=== PATIENT | female | born 1945 | race African-American/Black ===

== ENCOUNTER 2021-04-17 17:59 | Emergency (ER) | payer MEDICARE ==
[~2021-04-17 17:59] MED LIST: ALDACTONE25 MG PO; CLARITIN10 MG PO; COREG 6.25MG6.25 MG PO; COREG25 MG PO; FEOSOL325 MG PO; NORCO 5-325 TA1 EACH PO; NORVASC5 MG PO; PRINIVIL20 MG PO; VITAMIN B-121000 MC1 PO
[2021-04-17 20:37] LABS: BASOPHIL 1.3 % (0-2); HGB 11.2 g/dl (12.5-16.0); LYMPHOCYTE 29.7 % (15-48); MCHC 32.9 g/dL (32.0-36.0); MCV 91.2 fL (78.0-100.0); MONOCYTE 14.2 % (0-12); NEUTROPHIL 49.4 % (41-80); NRBC 0; PLT 245 K/uL (150-400); RBC 3.73 M/uL (4.20-5.40); RDW 15.9 % (11.5-14.0); WBC 7.5 K/uL (4.0-10.5)
[2021-04-17 21:01] LABS: BUN 35 mg/dL (7-18); CREATININE 6.65 mg/dL (0.51-0.95); GLUCOSE 98 mg/dL (74-106)
[2021-04-17 21:02] LABS: C-REACTIVE PROTEIN < 0.20 mg/dL (<=0.90); CHLORIDE 97 mmol/L (98-107); CO2 (BICARBONATE) 32 mmol/L (21-32); POTASSIUM 4.5 mmol/L (3.5-5.1)
[2021-04-18] MEDS ORDERED: NORCO 5-325 TA1 EACH PO (02:14)
== END 2021-04-18 02:29 | disposition home or self-care (01) ==
LOC: FER 17:59
PROVIDERS: Emergency Medicine Emergency Medical Services
DX: H40.9 Unspecified glaucoma (principal); I13.2 Hypertensive heart and chronic kidney disease with heart failure and with stage 5 chronic kidney disease, or end stage renal disease; N18.6 End stage renal disease; I50.9 Heart failure, unspecified; Z99.2 Dependence on renal dialysis; F17.200 Nicotine dependence, unspecified, uncomplicated
CPT/HCPCS: 36415; 70450; 80048; 85025; 86140; 93005; J1120; J2270; J2405

== ENCOUNTER 2021-10-26 12:21 | Emergency (ER) | payer MEDICARE, OTHER ==
[2021-10-26 13:35] LABS: INFLUENZA A NAA NEGATIVE (NEGATIVE)
[2021-10-26 13:41] LABS: CORONAVIRUS 2019 SARS-COV-2 POSITIVE (NEGATIVE)
== END 2021-10-26 15:05 | disposition home or self-care (01) ==
LOC: FER 12:21
PROVIDERS: Internal Medicine
DX: U07.1 COVID-19 (principal); I12.9 Hypertensive chronic kidney disease with stage 1 through stage 4 chronic kidney disease, or unspecified chronic kidney disease; N18.9 Chronic kidney disease, unspecified; F17.200 Nicotine dependence, unspecified, uncomplicated; Z99.2 Dependence on renal dialysis
CPT/HCPCS: 71045; U0002

== ENCOUNTER 2021-11-15 18:53 | Emergency (ER) | payer MEDICARE, OTHER ==
[2021-11-15 20:37] LABS: BASOPHIL 0.7 % (0-2); EOSINOPHIL 2.4 % (0-7); HCT 38.9 % (37.0-47.0); HGB 12.4 g/dl (12.5-16.0); LYMPHOCYTE 23.2 % (15-48); MCH 26.7 pg (25.0-31.0); MCHC 31.9 g/dL (32.0-36.0); MCV 83.7 fL (78.0-100.0); MONOCYTE 18.3 % (0-12); MPV 10.8 fL (6.0-9.5); NEUTROPHIL 55.1 % (41-80); NRBC 0; PLT 219 K/uL (150-400); RBC 4.65 M/uL (4.20-5.40); RDW 17.6 % (11.5-14.0); WBC 5.9 K/uL (4.0-10.5)
[2021-11-15 21:07] LABS: LACTIC ACID 1.1 mmol/L (0.4-1.9)
[2021-11-15 21:09] LABS: ALBUMIN 3.5 g/dL (3.4-5.0); BILIRUBIN - TOTAL 0.4 mg/dL (0.2-1.0); BUN/CREAT RATIO (CALC) 4.3 RATIO; CREATININE 4.44 mg/dL (0.51-0.95); GLOBULIN (CALCULATION) 4.5 g/dL; MAGNESIUM 2.6 mg/dL (1.8-2.4); PHOSPHORUS 5.5 mg/dL (2.6-4.7); POTASSIUM 4.9 mmol/L (3.5-5.1)
[2021-11-15 21:33] LABS: BILIRUBIN NEGATIVE (NEGATIVE); BLOOD NEGATIVE Ery/uL (NEGATIVE); CLARITY CLEAR (CLEAR); COLOR YELLOW (YELLOW); GLUCOSE (U) TRACE mg/dL (NORMAL); LEUKOCYTES NEGATIVE Leu/uL (NEGATIVE); NITRITE NEGATIVE (NEGATIVE); PROTEIN 2+ mg/dL (NEGATIVE); SPECIFIC GRAVITY 1.015 (1.001-1.030); UROBILINOGEN 0.2 mg/dL (0.2-1.0)
[2021-11-15 21:54] LABS: BACTERIA TRACE; SQUAMOUS EPITHELIAL CELLS RARE
[2021-11-16] MEDS ORDERED: VIBRAMYCIN100 MG PO (00:54)
== END 2021-11-16 01:05 | disposition home or self-care (01) ==
LOC: FER 18:53
PROVIDERS: Emergency Medicine Emergency Medical Services
DX: N39.0 Urinary tract infection, site not specified (principal); I13.2 Hypertensive heart and chronic kidney disease with heart failure and with stage 5 chronic kidney disease, or end stage renal disease; I50.9 Heart failure, unspecified; N18.6 End stage renal disease; F17.210 Nicotine dependence, cigarettes, uncomplicated; Z99.2 Dependence on renal dialysis; Z79.899 Other long term (current) drug therapy
CPT/HCPCS: 36415; 71045; 80053; 81001; 83605; 83735; 84100; 84484; 85025; 87040; 87088; 93005; J0696

== ENCOUNTER 2022-01-01 18:13 | Emergency (ER) | payer MEDICARE, OTHER ==
[~2022-01-01 18:13] MED LIST changes: +VIBRAMYCIN100 MG PO
[2022-01-01 19:06] LABS: BASOPHIL 0.9 % (0-2); EOSINOPHIL 3.3 % (0-7); HCT 28.9 % (37.0-47.0); HGB 9.1 g/dl (12.5-16.0); LYMPHOCYTE 17.7 % (15-48); MCH 28.1 pg (25.0-31.0); MCHC 31.5 g/dL (32.0-36.0); MCV 89.2 fL (78.0-100.0); MONOCYTE 17.1 % (0-12); MPV 10.7 fL (6.0-9.5); NEUTROPHIL 60.5 % (41-80); NRBC 0; PLT 275 K/uL (150-400); RBC 3.24 M/uL (4.20-5.40); RDW 19.5 % (11.5-14.0); WBC 8.1 K/uL (4.0-10.5)
[2022-01-01 19:27] LABS: BILIRUBIN - TOTAL 0.3 mg/dL (0.2-1.0); GLOBULIN (CALCULATION) 4.5 g/dL; POTASSIUM 4.2 mmol/L (3.5-5.1); TOTAL PROTEIN 7.5 g/dL (6.4-8.2)
[2022-01-01 19:29] LABS: CREATININE 7.65 mg/dL (0.51-0.95)
[2022-01-01 20:22] LABS: BILIRUBIN NEGATIVE (NEGATIVE); BLOOD NEGATIVE Ery/uL (NEGATIVE); CLARITY CLEAR (CLEAR); COLOR YELLOW (YELLOW); GLUCOSE (U) 1+ mg/dL (NORMAL); LEUKOCYTES NEGATIVE Leu/uL (NEGATIVE); NITRITE NEGATIVE (NEGATIVE); PROTEIN 2+ mg/dL (NEGATIVE); SPECIFIC GRAVITY 1.015 (1.001-1.030); UROBILINOGEN 0.2 mg/dL (0.2-1.0)
[2022-01-01 20:36] LABS: URINARY WBC RARE
[2022-01-01 20:37] LABS: SQUAMOUS EPITHELIAL CELLS RARE
[2022-01-01 21:33] LABS: INR 1.02 (0.9-1.2); PROTHROMBIN TIME 12.8 SECONDS (11.8-13.4); PTT 30.4 SECONDS (24.4-34.7)
== END 2022-01-01 22:30 | disposition other institution (70) ==
LOC: FER 18:13
PROVIDERS: Internal Medicine
DX: I63.9 Cerebral infarction, unspecified (principal); R47.89 Other speech disturbances; R29.705 NIHSS score 5; I25.10 Atherosclerotic heart disease of native coronary artery without angina pectoris; N18.6 End stage renal disease; D63.1 Anemia in chronic kidney disease; F17.210 Nicotine dependence, cigarettes, uncomplicated; I12.0 Hypertensive chronic kidney disease with stage 5 chronic kidney disease or end stage renal disease; Z99.2 Dependence on renal dialysis; Z20.822 Contact with and (suspected) exposure to COVID-19
CPT/HCPCS: 36415; 70450; 71045; 80053; 81001; 84145; 85025; 85610; 85730; J3490; U0002

== ENCOUNTER 2022-04-18 17:55 | Emergency (ER) | payer MEDICARE, OTHER ==
[2022-04-18 18:49] LABS: BILIRUBIN NEGATIVE (NEGATIVE); BLOOD NEGATIVE Ery/uL (NEGATIVE); CLARITY CLEAR (CLEAR); COLOR YELLOW (YELLOW); GLUCOSE (U) 1+ mg/dL (NORMAL); LEUKOCYTES 1+ Leu/uL (NEGATIVE); NITRITE NEGATIVE (NEGATIVE); PROTEIN 3+ mg/dL (NEGATIVE); UROBILINOGEN 0.2 mg/dL (0.2-1.0); pH 7.5 (5.0-9.0)
[2022-04-18 18:53] LABS: BACTERIA 1+
[2022-04-18 19:57] LABS: BASOPHIL 0.9 % (0-2); EOSINOPHIL 3.4 % (0-7); HCT 35.2 % (37.0-47.0); HGB 11.3 g/dl (12.5-16.0); MCHC 32.1 g/dL (32.0-36.0); MCV 81.1 fL (78.0-100.0); MONOCYTE 16.3 % (0-12); NRBC 0; PLT 256 K/uL (150-400); RBC 4.34 M/uL (4.20-5.40); RDW 19.8 % (11.5-14.0); WBC 7.7 K/uL (4.0-10.5)
[2022-04-18 20:16] LABS: ALBUMIN 3.1 g/dL (3.4-5.0); BILIRUBIN - TOTAL 0.4 mg/dL (0.2-1.0); BUN/CREAT RATIO (CALC) 5.9 RATIO; CREATININE 3.39 mg/dL (0.51-0.95); GLOBULIN (CALCULATION) 4.9 g/dL
[2022-04-18] MEDS ORDERED: CEFDINIR300 MG PO (21:41)
== END 2022-04-18 22:28 | disposition home or self-care (01) ==
LOC: FER 17:55
PROVIDERS: Emergency Medicine; Internal Medicine
DX: N39.0 Urinary tract infection, site not specified (principal); N18.6 End stage renal disease; D63.1 Anemia in chronic kidney disease; Z99.2 Dependence on renal dialysis; Z88.6 Allergy status to analgesic agent
CPT/HCPCS: 36415; 70450; 71250; 80053; 81001; 84145; 85025; 87088; J0696

== ENCOUNTER 2022-05-30 16:32 | Emergency (ER) | payer MEDICARE, OTHER ==
[~2022-05-30 16:32] MED LIST changes: +CEFDINIR300 MG PO
[2022-05-30 18:45] LABS: ALBUMIN 2.5 g/dL (3.4-5.0); BILIRUBIN - TOTAL 0.4 mg/dL (0.2-1.0); BUN/CREAT RATIO (CALC) 5.6 RATIO; CREATININE 2.85 mg/dL (0.51-0.95); GLOBULIN (CALCULATION) 5.2 g/dL; POTASSIUM 3.3 mmol/L (3.5-5.1); TOTAL PROTEIN 7.7 g/dL (6.4-8.2)
[2022-05-30 19:42] LABS: BASOPHIL 0.9 % (0-2); EOSINOPHIL 0.6 % (0-7); HCT 30.1 % (37.0-47.0); HGB 9.7 g/dl (12.5-16.0); LYMPHOCYTE 11.6 % (15-48); MCHC 32.2 g/dL (32.0-36.0); MCV 83.8 fL (78.0-100.0); MONOCYTE 13.3 % (0-12); MPV 11.1 fL (6.0-9.5); NEUTROPHIL 73.2 % (41-80); NRBC 0; PLT 169 K/uL (150-400); RBC 3.59 M/uL (4.20-5.40); RDW 18.4 % (11.5-14.0)
== END 2022-05-30 20:20 | disposition home or self-care (01) ==
LOC: FER 16:32
PROVIDERS: Emergency Medicine
DX: R55 Syncope and collapse (principal); I12.9 Hypertensive chronic kidney disease with stage 1 through stage 4 chronic kidney disease, or unspecified chronic kidney disease; E11.22 Type 2 diabetes mellitus with diabetic chronic kidney disease; N18.9 Chronic kidney disease, unspecified
CPT/HCPCS: 36415; 71045; 80053; 84484; 85025; 93005; J7030